=== PATIENT | female | born 1995 | race Caucasian/White ===

== ENCOUNTER 2023-03-07 06:57 | Inpatient (IN) | payer BC ==
[~2023-03-07] VITALS: Ht 175.3 cm; Wt 104.5 kg
[2023-03-07 19:40] VITALS: BP 133/77
[2023-03-07] MEDS ORDERED: PNV91TAB6 PO (19:42)
[2023-03-07] MEDS ORDERED: AMPICILLIN (IV) 2,000 MG in NS (IVPB) 50 ML 50 ML IV SCH (19:42)
--- NOTE | 2023-03-07 19:42 | History & Physical-OB ---
OB - Chief Complaint & HPI Date/Time Date of Admission: Date of Admission: Mar 07, 2023 at 19:12 Date seen by a Provider: Mar 07, 2023 Time Seen by a Provider: 19:40 Chief Complaint/History OB-Reason for Admission/Chief: Induction of Labor Hx : 1 Hx Para: 0 Expected Date of Delivery: Mar 01, 2023 Gestational Age in Weeks: 40 Gestational Age in Days: 6 Indication for induction: post dates History of Labs A neg, antibody neg, RI. HIV/HepB/RPR NR, GC/chlamydia neg. Cell free DNA testing low risk. 1 hour glucola neg. GBS positive. Allergies and Home Medications Allergies Coded Allergies: No Known Drug Allergies (Unverified , 03/07/23) Patient Home Medication List Home Medication List Reviewed: Yes Pnv95/Ferrous Fumarate/FA ( Vitamin Tablet) 28 Mg Iron-800 Mcg Tablet, 1 EACH PO DAILY, (Reported) Entered as Reported by: MECHELLE CONDON on 03/07/231941 Last Action: New Order OB - History Hx of Present Ultrasounds: Abnormal US findings (initial US with possible abnormal curvature of spine, seen by MFM and level 2 ultrasound unremarkable) Obstetrical Complications: None Medical Complications: None Information Induced Hypertension: No Maternal Gestational Diabetes: No Hemorrhage: No Obstetrical History Hx : 1 Hx Para: 0 Hx Termination: No Hx Multiple Gestation: No Hx Ectopic : No Hx Stillbirth: No Hx Complication: No Hx Induced Hypertens: No Hx Maternal Gestational Diabet: No Hx Hemorrhage: No Risk Variables Obstetrical Risk Variables: Not POA Anemia, Not POA Asthma, Not POA Autoimmune Disease, Not POA Bariatric Surgery, Not POA Bleeding Disorder, Not POA BMI >= 40, Not POA Cardiac Disease, Not POA Economic Housing Instabil, Not POA Gastrointestinal Disease, Not POA Gestational Diabetes, Not POA HIV, Not POA Hypertension, Not POA Chcf Anticoagulant U, Not POA Mental Health Disorder, Not POA Multiple , Not POA Neuromuscular Disease, Not POA Obstetrical VTE, Not POA Other Preeclampsia, Not POA Placenta Previa, Not POA Placental Abruption, Not POA Placenta Accreta Spectrum, Not POA Preexisting Diabetes, Not POA , Not POA Previous , Not POA Pulmonary Hypertension, Not POA Renal Disease, Not POA Severe Preeclampsia, Not POA Substance Abuse, Not POA Thyrotoxicosis Patient Past Medical History PMHx: Denies SurgHx: Denies Social History/Family History Alcohol Use: Denies Use Recreational Drug Use: No Smoking Cessation: Never smoker Immunizations Tetanus Booster (TDap): Less than 5yrs (01/06/2023) Rubella: immune RPR/VDRL: Negative GBS Status: Positive HBsAG: Negative OB - Admission Exam Physical Exam HEENT: NCAT Cervical Dilatation: 4cm Effacement: 25% Station: -3 Membranes: Intact Heart Rate: 150's Accelerations: Accelerations Present Decelerations: No Decelerations Chcf Variability: Average (6-25) Contractions on Admission: >10 Minutes Apart Diaz Scoring Tool (Modified) Dilation (cm): 3-4cm (2) Effacement (%): 0-30% (0) Descent/Station: -3 (0) Cervix Consistency: Soft (2) Cervix Position: Middle/Mid-Position (1) Subtract 1 point for: Postdate (-1), Nulliparity (-1) Diaz Score: 3 OB - Assessment/Plan/Diagnosis Assessment Admission Dx Term intrauterine at 40w6d GBS positive Blood type A neg Admission Status: Inpatient Order (span 2 midnights) Reason for Inpatient Admission: Labor, delivery and course Plan Problems: (1) Encounter for induction of labor Assessment & Plan: Due to postdates, discussed risks and benefits of IOL at 41 weeks versus expectant management and she preferred to proceed with induction. Although cervix is dilated, Diaz score remains low, discussed medication vs mechanical ripening vs AROM and pitocin, and she would like to proceed with mechanical ripening. Clew double balloon cervical ripening catheter placed at approximately 2000. (2) Positive GBS test Assessment & Plan: Ampicillin MECHELLE CONDON MD Mar 07, 2023 19:42
[2023-03-07] MEDS ORDERED: LACTATED RINGERS 1,000 ML 500 ML IV PRN (19:45)
[2023-03-07] MEDS ORDERED: MINERAL OIL 30 ML UDC TOP PRN (19:45)
[2023-03-07] MEDS ORDERED: ACETAMINOPHEN 500 MG TABLET PO PRN (20:00)
[2023-03-07 20:27] VITALS: BP 133/75
[2023-03-07] MEDS: D5 LR 1,000 ML IV SOLN 1,000 ML IV SCH (20:41)
[2023-03-07 20:47] LABS: BACTERIA,URINE LARGE /HPF; BILIRUBIN,URINE NEGATIVE (NEGATIVE); CLARITY,URINE CLEAR; COLOR,URINE YELLOW; GLUCOSE, URINE (UA) NEGATIVE (NEGATIVE); KETONES,URINE NEGATIVE (NEGATIVE); LEUKOCYTE ESTERASE ,URINE TRACE (NEGATIVE); NITRITE,URINE NEGATIVE (NEGATIVE); PH,URINE 5.5 (5-9); PROTEIN,URINE TRACE (NEGATIVE); SQUAMOUS EPITHELIAL CELL,UR 25-50 /HPF
[2023-03-07 20:59] LABS: BASOPHILS % (AUTO) 0 % (0-10); EOSINOPHILS # (AUTO) 0.1 10^3/uL (0.0-0.3); EOSINOPHILS % (AUTO) 1 % (0-10); HEMATOCRIT 34 % (35-52); HEMOGLOBIN 11.9 g/dL (11.5-16.0); LYMPHOCYTES # (AUTO) 2.3 10^3/uL (1.0-4.0); LYMPHOCYTES % (AUTO) 22 % (12-44); MEAN CORPUSCULAR HEMOGLOBIN 31 pg (25-34); MEAN CORPUSCULAR HGB CONC 35 g/dL (32-36); MEAN CORPUSCULAR VOLUME 88 fL (80-99); MEAN PLATELET VOLUME 10.1 fL (9.0-12.2); MONOCYTES # (AUTO) 0.6 10^3/uL (0.0-1.0); MONOCYTES % (AUTO) 6 % (0-12); NEUTROPHILS # (AUTO) 7.3 10^3/uL (1.8-7.8); NEUTROPHILS % (AUTO) 71 % (42-75); PLATELET COUNT 284 10^3/uL (130-400); WHITE BLOOD COUNT 10.3 10^3/uL (4.3-11.0)
[2023-03-08] VITALS (41 sets, daily range): BP systolic 105–171; BP diastolic 55–83
[2023-03-08] MEDS: AMPICILLIN (IV) 1,000 MG in NS (IVPB) 50 ML 50 ML IV SCH ×2 (00:11→03:35)
[2023-03-08] MEDS: CATHETER FLUSH 10 ML SYR IV SCH ×2 (02:21→05:26)
[2023-03-08] MEDS ORDERED: fentaNYL 2 mcg/ml BUPIVA 0.125 100 ML ONE (02:24)
[2023-03-08] MEDS ORDERED: LACTATED RINGERS 1,000 ML 1,000 ML IV ONE (02:30)
[2023-03-08] MEDS ORDERED: ONDANSETRON INJECTION 4 MG/2 ML (SDV) IV PRN (03:15)
[2023-03-08] MEDS ORDERED: METOCLOPRAMIDE INJ 10 MG/2 ML IV PRN (03:15)
[2023-03-08] MEDS ORDERED: LACTATED RINGERS 1,000 ML 1,000 ML IV SCH (03:15)
[2023-03-08] MEDS ORDERED: fentaNYL 2 mcg/ml BUPIVA 0.125 100 ML EPI SCH (03:15)
[2023-03-08] MEDS ORDERED: diphenhydrAMINE INJ 50 MG/ML VIAL IV PRN (03:15)
[2023-03-08] MEDS ORDERED: NALOXONE 0.4 MG/ML 1 ML VIAL IV PRN ×3 (03:15→07:30)
[2023-03-08] MEDS ORDERED: OXYTOCIN DRIP PRE-MIX 500 ML IV ONE ×2 (03:24→06:22)
[2023-03-08] MEDS: D5 LR 1,000 ML IV SOLN 1,000 ML IV SCH (03:45)
--- NOTE | 2023-03-08 07:03 | OB Labor & Delivery Record ---
Vag Delivery Note Vag Delivery Note Date of Delivery: 03/08/23 Preoperative Diagnosis: Daria Ribeiro is a (27 /Para 1 / 0, Gestational Age (wks)41with 0 days Postoperative Diagnosis: Same Attending Surgeon/Physician: Mechelle Vasquez MD Anesthesia: Epidural Delivery Type: Findings: Viable male , apgars 8/9, weight pending Lacerations: bilateral vaginal sulcus, second degree perineal Intact placenta with 3 vessel cord. No nuchal cord, body cord or shoulder dystocia Estimated Blood Loss: 200 ml Complications: None Condition: Stable Description of Procedure: The patient is a 27 year old female who presented for induction of labor. She was admitted and informed consent was obtained. Her labor course was remarkable for cervical ripening with bain bulb, no further augmentation required. She progressed to complete dilatation and began to push. She was then set up for delivery. The infant's head was delivered atraumatically in the GORDON position. The shoulders and remainder of the 's body were then delivered without difficulty. Upon delivery, the infant was vigorous and placed on maternal chest and the mouth and nares were bulb suctioned. After a delay cord was doubly clamped and cut and the remained on maternal chest. An intact placenta with 3-vessel cord delivered via Tsering and there was found to be minimal bleeding.~ Vigorous fundal massage was performed and the fundus was found to be firm. IV oxytocin was given. Examination of the vagina and perineum revealed a bilateral vaginal sulcus laceration repaired in simple running fashion with 3-0 vicryl rapide suture and a second degree perineal laceration repaired in the usual fashion with 3-0 Vicryl rapide suture. Following the re pair, sponge, instrument and needle counts were correct. Mom and baby were both in stable condition in the labor suite. Vitals - Labs Vital Signs - I&O Vital Signs Date Time Temp Pulse Resp B/P (MAP) Pulse Ox O2 Delivery O2 Flow Rate FiO2 03/08/23 06:30 37.5 68 18 105/55 (72) Room Air 03/08/23 06:15 37.3 85 18 124/59 (80) Room Air 03/08/23 06:00 79 18 126/67 (86) Room Air 03/08/23 05:45 100 18 142/66 (91) Room Air 03/08/23 05:30 76 18 132/67 (88) Room Air 03/08/23 05:15 75 18 123/68 (86) Room Air 03/08/23 05:00 76 18 125/66 (85) Room Air 03/08/23 04:45 36.8 76 18 124/71 (88) Room Air 03/08/23 04:30 78 18 111/56 (74) Room Air 03/08/23 04:15 74 18 125/61 (82) Room Air 03/08/23 04:00 80 18 127/59 (81) Room Air 03/08/23 03:55 80 18 121/60 (80) Room Air 03/08/23 03:50 80 18 133/61 (85) Room Air 03/08/23 03:45 111 18 128/65 (86) 98 Room Air 03/08/23 03:40 36.0 100 18 130/75 (93) 99 Room Air 03/08/23 03:35 90 18 129/67 (87) 99 Room Air 03/08/23 03:30 85 18 128/67 (87) 99 Room Air 03/08/23 03:15 93 18 130/61 (84) 98 Room Air 03/07/23 20:27 36.6 81 18 133/75 (94) Room Air 03/07/23 19:40 36.6 92 18 97 Room Air 03/07/23 19:40 36.6 92 18 133/77 (95) 97 Room Air I & O 03/08/23 07:00 Intake Total 1650 ml Balance 1650 ml Labs Laboratory Tests 03/07/23 19:20: Urine Color YELLOW, Urine Clarity CLEAR, Urine pH 5.5, Urine Specific [place] >=1.030, Urine Protein TRACEH, Urine Glucose (UA) NEGATIVE, Urine Ketones N EGATIVE, Urine Nitrite NEGATIVE, Urine Bilirubin NEGATIVE, Urine Urobilinogen 0.2, Urine Leukocyte Esterase TRACEH, Urine RBC (Auto) TRACEH, Urine RBC 2-5H, Urine WBC 2-5, Urine Squamous Epithelial Cells 25-50H, Urine Crystals NONE, Urine Bacteria LARGEH, Urine Casts NONE, Urine Mucus MODERATEH, Urine Culture Indicated YES 03/07/23 20:45: Syphilis Total Antibody Negative 03/07/23 20:51: White Blood Count 10.3, Red Blood Count 3.86, Hemoglobin 11.9, Hematocrit 34L, Mean Corpuscular Volume 88, Mean Corpuscular Hemoglobin 31, Mean Corpuscular Hemoglobin Concent 35, Red Cell Distribution Width 12.6, Platelet Count 284, Mean Platelet Volume 10.1, Immature Granulocyte % (Auto) 0, Neutrophils (%) (Auto) 71, Lymphocytes (%) (Auto) 22, Monocytes (%) (Auto) 6, Eosinophils (%) (Auto) 1, Basophils (%) (Auto) 0, Neutrophils # (Auto) 7.3, Lymphocytes # (Auto) 2.3, Monocytes # (Auto) 0.6, Eosinophils # (Auto) 0.1, Basophils # (Auto) 0.0, Immature Granulocyte # (Auto) 0.0 MECHELLE VASQUEZ MD Mar 08, 2023 07:02
[2023-03-08] MEDS ORDERED: BENZOCAINE/MENTHOL (DERMOPLAST) 56 ML CAN TP PRN (07:15)
[2023-03-08] MEDS ORDERED: OXYTOCIN DRIP PRE-MIX 500 ML IV SCH (07:15)
[2023-03-08] MEDS ORDERED: DIBUCAINE 1% OINTMENT 28 GM TUBE TOP PRN (07:30)
[2023-03-08] MEDS: WITCH HAZEL(TUCKS) 40 EA JAR TOP PRN ×2 (07:50→19:30)
[2023-03-08] MEDS: DOCUSATE SODIUM 100 MG CAPSULE PO SCH ×2 (07:51→22:25)
[2023-03-08] MEDS: IBUPROFEN 600 MG TABLET PO SCH ×3 (11:48→23:21)
[2023-03-08] MEDS ORDERED: CATHETER FLUSH 10 ML SYR IV SCH (14:00)
[2023-03-08] MEDS: ACETAMINOPHEN 500 MG TABLET PO PRN ×2 (15:22→23:21)
[2023-03-08] MEDS: oxyCODONE IMMEDIATE RELEASE 5 MG TABLET PO PRN ×2 (19:30→23:21)
[2023-03-09 03:43] VITALS: BP 116/60
[2023-03-09] MEDS: oxyCODONE IMMEDIATE RELEASE 5 MG TABLET PO PRN ×2 (03:44→08:12)
[2023-03-09] MEDS: IBUPROFEN 600 MG TABLET PO SCH (05:28)
[2023-03-09 06:03] LABS: BASOPHILS % (AUTO) 0 % (0-10); EOSINOPHILS # (AUTO) 0.1 10^3/uL (0.0-0.3); EOSINOPHILS % (AUTO) 1 % (0-10); HEMATOCRIT 32 % (35-52); HEMOGLOBIN 11.1 g/dL (11.5-16.0); LYMPHOCYTES # (AUTO) 3.1 10^3/uL (1.0-4.0); LYMPHOCYTES % (AUTO) 24 % (12-44); MEAN CORPUSCULAR HEMOGLOBIN 31 pg (25-34); MEAN CORPUSCULAR HGB CONC 34 g/dL (32-36); MEAN CORPUSCULAR VOLUME 91 fL (80-99); MEAN PLATELET VOLUME 10.2 fL (9.0-12.2); MONOCYTES # (AUTO) 0.6 10^3/uL (0.0-1.0); MONOCYTES % (AUTO) 5 % (0-12); NEUTROPHILS # (AUTO) 8.8 10^3/uL (1.8-7.8); NEUTROPHILS % (AUTO) 69 % (42-75); PLATELET COUNT 261 10^3/uL (130-400); WHITE BLOOD COUNT 12.7 10^3/uL (4.3-11.0)
[2023-03-09] MEDS ORDERED: RHO(D) IMMUNE GLOBULIN 300 MCG/2 ML SYRINGE IM/IV ONE (07:00)
[2023-03-09] MEDS ORDERED: DOCU100C37 PO (07:46)
[2023-03-09] MEDS ORDERED: IBUP-844 PO (07:46)
--- NOTE | 2023-03-09 07:47 | Discharge Inst-Women's Service ---
Discharge Inst-Women's Serv Depart Medication/Instructions New, Converted or Re-Newed RX: Transmitted to Pharmacy ([facility]) Problems Reviewed?: Yes Consults/Follow Up Additional Follow Up: Yes (Dr. Vasquez in 6 weeks) Activity Activity: Activity as Tolerated Driving Instructions: No Driving for 1 Week Nothing Inside Vagina: No Hodgen (For 6 weeks) Diet Discharge Diet: Regular Diet Return to The Hospital For: As below Symptoms to Report to : Bleeding Excessive, Fever Over 101 Degrees F, Vagi nal Discharge Foul For Any Problems or Questions: Contact Your Physician SANGEETHA DASILVA MD Mar 09, 2023 07:47
--- NOTE | 2023-03-09 07:50 | Discharge Summary ---
Diagnosis/Chief Complaint Date of Admission Mar 07, 2023 at 19:12 Date of Discharge March 09, 2023 Admission Diagnosis Admission Diagnosis 1. Intrauterine at 41 weeks gestation Discharge Diagnosis 1. Intrauterine at 41 weeks gestation Chief Complaint/HPI Chief Complaint/HPI 27-year-old 1 now term 1 L1 who initially presents to labor and delivery during the evening of March 07 for induction of labor at 40 weeks 6 days gestation. Her care was obtained through Dr. Vasquez at [facility] and essentially unremarkable. Discharge Summary-OBS Procedures 1. Epidural per anesthesia 2. Spontaneous vaginal delivery 3. Repair of bilateral vaginal sulcus tears and second-degree repair Discharge Physical Examination Allergies: Coded Allergies: No Known Drug Allergies (Unverified , 03/07/23) Vitals & I&Os Vital Sign - Last 12Hours Date Time Temp Pulse Resp B/P (MAP) Pulse Ox O2 Delivery O2 Flow Rate FiO2 03/09/23 03:43 36.2 74 18 116/60 (78) 97 Room Air General Appearance: No Acute Distress Respiratory: Clear to Auscultation Cardiovascular: Regular Rate Abdominal: Soft (With uterus firm) Hospital Course Was the Problem List Reviewed?: Yes following delivery patient underwent routine care orders. She had no complications other than some vaginal pain which was controlled with oxycodone 5 mg 1 dose. Her vaginal bleeding was minimal. She was tolerating regular diet. No reports of any chest pain or shortness of breath and no leg pain. Her hemoglobin in the morning of March 09 was 11.1 and this was compared to admission of 11.9. She was felt ready for dismissal during the morning of March 09, 2023. Labs Laboratory Tests 03/09/23 05:35: White Blood Count 12.7H, Red Blood Count 3.56L, Hemoglobin 11.1L, Hematocrit 32L , Mean Corpuscular Volume 91, Mean Corpuscular Hemoglobin 31, Mean Corpuscular Hemoglobin Concent 34, Red Cell Distribution Width 13.0, Platelet Count 261, Mean Platelet Volume 10.2, Immature Granulocyte % (Auto) 1, Neutrophils (%) (Auto) 69, Lymphocytes (%) (Auto) 24, Monocytes (%) (Auto) 5, Eosinophils (%) (Auto) 1, Basophils (%) (Auto) 0, Neutrophils # (Auto) 8.8H, Lymphocytes # (Auto) 3.1, Monocytes # (Auto) 0.6, Eosinophils # (Auto) 0.1, Basophils # (Auto) 0.0, Immature Granulocyte # (Auto) 0.1 Microbiology 03/07/23 Urine Culture - Final, Complete Gram Pos Mixed Bacterial Nayeli Discharge Instructions to patient/family Please see electronic discharge instructions given to patient. Discharge Medications Reviewed and agree with Discharge Medication list on patient's Discharge Instruction sheet SANGEETHA DASILVA MD Mar 09, 2023 07:50
[2023-03-09 08:00] VITALS: BP 133/83
[2023-03-09] MEDS: DOCUSATE SODIUM 100 MG CAPSULE PO SCH (08:12)
[2023-03-09] MEDS: ACETAMINOPHEN 500 MG TABLET PO PRN (08:12)
--- NOTE | 2023-03-09 09:34 | Anesthesia-Regional Post-Op ---
Regional Patient Condition Mental Status: Alert, Oriented x3 Circulation: Same as Pre-Op Headache: Absent Sensation: Full Recovery Motor Block: Absent Post Op Complications Complications None Follow Up Care/Instructions Patient Instructions None needed. Anesthesia/Patient Condition Patient is doing well, no complaints, stable vital signs, no apparent adverse anesthesia problems. No complications reported per nursing. ELIEZER HOLMAN CRNA Mar 09, 2023 09:34
[2023-03-09 11:18] VITALS: BP 118/78
== END 2023-03-09 11:20 | disposition home or self-care (01) | DRG 807 ==
LOC: LDRP 19:12
PROVIDERS: ADMIT Family Medicine; ATTEND Family Medicine
PROC: 0U7C7ZZ Dilation of Cervix, Via Natural or Artificial Opening (ICD-10-PCS; 2023-03-07)
PROC: 10E0XZZ Delivery of Products of Conception, External Approach (ICD-10-PCS; principal; 2023-03-08)
PROC: 0KQM0ZZ Repair Perineum Muscle, Open Approach (ICD-10-PCS; 2023-03-08)
PROC: 0UQGXZZ Repair Vagina, External Approach (ICD-10-PCS; 2023-03-08)
DX: O48.0 Post-term pregnancy (principal); Z37.0 Single live birth; O70.1 Second degree perineal laceration during delivery; O99.824 Streptococcus B carrier state complicating childbirth; Z3A.41 41 weeks gestation of pregnancy
CPT/HCPCS: 36415; 81000; 83033; 85025; 86780; 86850; 86900; 86901; 87088